=== PATIENT | male | born 1950 | race Caucasian/White ===

== ENCOUNTER 2021-08-14 02:41 | Emergency (ER) | payer MEDICARE ==
[~2021-08-14] VITALS: Ht 180.3 cm; Wt 73.6 kg
[2021-08-14 03:13] VITALS: BP 170/86
[2021-08-14] MEDS ORDERED: ACYC-128 PO (03:42)
[2021-08-14] MEDS ORDERED: GABA-530 PO (03:43)
[2021-08-14] MEDS ORDERED: acyclovir 200 MG capsule PO STA ×2 (03:47→03:51)
[2021-08-14] MEDS ORDERED: CEPH-585 PO (03:49)
[2021-08-14] MEDS ORDERED: gabapentin 100mg capsule PO ONE (03:50)
[2021-08-14] MEDS ORDERED: cephalexin 250mg capsule PO ONE (04:10)
== END 2021-08-14 04:15 | disposition home or self-care (01) ==
LOC: ER 02:42
DX: B02.9 Zoster without complications (principal); R21 Rash and other nonspecific skin eruption; Z79.2 Long term (current) use of antibiotics; Z79.899 Other long term (current) drug therapy
CPT/HCPCS: 99284